=== PATIENT | male | born 2000 | race Native Hawaiian/Other Pacific Islander ===

== ENCOUNTER 2021-08-19 12:49 | Emergency (ER) | payer MEDICAID ==
--- NOTE | 2021-08-19 12:51 | ERPHSYRPT ---
- History of Present Illness Time Seen by Provider: 08/19/21 12:51 Source: patient Exam Limitations: no limitations Physician History: This is a 20-year-old white male who is new to the area and presents with left earache that has been intermittent over the last 2 months. It worsened this morning. He stated he use hydrogen peroxide yesterday and now he is having trouble with increased pain and decreased hearing in his left ear. He has not had a fever. He has had no nausea vomiting or diarrhea. He has no known drug allergies and is not taking any medications chronically. Timing/Duration: intermittent, weeks (8) Severity: mild ENT Location: ear (L) Prearrival Treatment: no prearrival treatment (Hydroperoxide) Modifying Factors: Improves With: nothing Associated Symptoms: ear pain (L), hearing loss (Decreased left side) Allergies/Adverse Reactions: No Known Drug Allergies Allergy (Unverified 08/19/21 12:59) Travel Risk - International Travel Have you traveled outside of the country in past 3 weeks: No - Coronavirus Screening Are you exhibiting any of the following symptoms?: No Close contact with a COVID-19 positive Pt in past 14-21 Days: No - Review of Systems Constitutional: No Symptoms Eyes: No Symptoms Ears, Nose, & Throat: Ear Pain (Left) Respiratory: No Symptoms Cardiac: No Symptoms Abdominal/Gastrointestinal: No Symptoms Genitourinary Symptoms: No Symptoms Musculoskeletal: No Symptoms Skin: No Symptoms Neurological: No Symptoms Psychological: No Symptoms Endocrine: No Symptoms Hematologic/Lymphatic: No Symptoms Immunological/Allergic: No Symptoms All Other Systems: Reviewed and Negative - Past Medical History Pertinent Past Medical History: No - Past Surgical History Past Surgical History: No - Nursing Vital Signs Nursing Vital Signs: Initial Vital Signs Temperature 96.8 F 08/19/21 12:52 Pulse Rate 98 H 08/19/21 12:52 Respiratory Rate 18 08/19/21 12:52 Blood Pressure 138/79 08/19/21 12:52 O2 Sat by Pulse Oximetry 97 08/19/21 12:52 Pain Scale Pain Intensity 3 - Physical Exam General Appearance: no apparent distress, alert, anxiety Eye Exam: bilateral eye: normal inspection, PERRL, EOMI Ear Exam: right ear: canal normal, TM normal, left ear: erythema, tenderness, TM dull, bilateral ear: auricle normal Nasal Exam: normal inspection Throat Exam: normal, pharynx normal Neck Exam: normal inspection, non-tender, supple, full range of motion, trachea midline Cardiovascular/Respiratory Exam: chest non-tender, no respiratory distress Abdominal Exam: non-tender Neurologic Exam: alert, oriented x 3, cooperative, financial sales assistant II-XII nml as tested, normal mood/affect, nml cerebellar function, nml station & gait, sensation nml Skin Exam: normal color, warm, dry SpO2 Interpretation: normal O2 Delivery: Room Air - Course Nursing assessment & vital signs reviewed: Yes - Progress Progress: unchanged Counseled pt/family regarding: diagnosis, need for follow-up - Departure Departure Disposition: Home Clinical Impression: Left otitis media Condition: Stable Critical Care Time: No Referrals: ELIGIO MOLINA NP [Primary Care Provider] - Follow up/PCP as directed Additional Instructions: Take your medication as prescribed. Call pearl maker today (names provided) to make a follow-up appointment. May add Tylenol and ibuprofen if no contraindications for pain control. Prescriptions: Prednisone 10 mg [Deltasone 10 mg] 10 mg PO TID #12 tablet Cephalexin Mh 500 mg [Keflex 500 mg] 500 mg PO TID #21 cap
== END 2021-08-19 13:21 | disposition home or self-care (01) ==
LOC: ED 12:49
DX: H66.92 Otitis media, unspecified, left ear (principal)
CPT/HCPCS: 99283

== ENCOUNTER 2023-12-17 15:04 | Emergency (ER) | payer MEDICAID, OTHER ==
[2023-12-17 15:17] VITALS: TEMP 98.2
[2023-12-17] MEDS ORDERED: Zofran 4 MG/2 ML VIAL ONE (15:35)
[2023-12-17] MEDS ORDERED: SUBLIMAZE 100 MCG/2 ML ONE (15:36)
[2023-12-17] MEDS: Zofran 4 MG/2 ML VIAL IV ONE (15:37)
[2023-12-17 15:39] LABS: Absolute Neutrophil Ct (ANC) 6.31 x10^3/uL (1.4-6.9); BASOPHIL % 0.4 % (0.0-0.4); Basophil (Absolute #) 0.04 x10^3/uL (0-0.4); Eosinophil % 0.2 % (0.00-5.0); Eosinophil (Absolute #) 0.02 x10^3/uL (0-0.5); Hematocrit 44.8 % (42-50); IMMATURE GRAN # 0.05 x10^3u/L (0.00-0.03); IMMATURE GRAN % 0.5 % (0.00-0.4); Lymphocyte (Absolute #) 2.95 x10^3/uL (1.0-4.6); Lymphocytes % 29.2 % (24.0-44.0); Mean Cell Volume 86.5 fL (78-100); Mean Corpuscular Hgb Concent. 33.5 g/dL (32-36); Mean Platelet Volume 11.2 fL (7.5-11.0); Monocyte (Absolute #) 0.74 x10^3/uL (0.0-1.3); Monocytes % 7.3 % (0.0-12.0); Neutrophil % 62.4 % (36.0-66.0); Platelet Count 264 x10^3/uL (150-450); Red Blood Count 5.18 x10^6/uL (4.1-5.6); Red Cell Distribution Width 12.8 % (11.5-14.0); White Blood Count 10.1 x10^3/uL (4.0-10.5)
[2023-12-17] MEDS: SUBLIMAZE 100 MCG/2 ML IV ONE (15:39)
--- NOTE | 2023-12-17 15:42 | ERPHSYRPT ---
- History of Present Illness Time Seen by Provider: 12/17/23 15:12 Source: patient Exam Limitations: no limitations Patient Subjective Stated Complaint: Pt c/o of right sided chest pain that radiates to his shoulder and down below the breast Triage Nursing Assessment: Pt brought to the ER by his mom, hypertensive, rates pain as 05/20, pt states that his legs went numb at work and he fell and now c/o of kandy numb hands and right sided chest pain that radiates to his shoulder, pulses normal, skin n/w/d, was hyperventilating upon arrival, no difficulty breathing once he slowed it down, doesn't appear to be in any distress Physician History: Patient is here with chest pain. Midsternal. Radiates down his right arm. Patient states that he was at work today and had a fall. Complained of bilateral leg numbness, hand numbness. Pulses are normal, hyperventilating upon walking in the room. Patient does follow-up With his PCP. Per the mom there is no sudden onset of of aortic dissections, other heart problems in the family. 1 uncle may have had a heart attack around 30. However no known early cardiac disease outside of this. No known history of HCMO. Allergies/Adverse Reactions: No Known Drug Allergies Allergy (Verified 12/17/23 15:17) Home Medications: No Reportable Medications [No Reported Medications] 12/17/23 [History] Hx Tetanus, Diphtheria Vaccination/Date Given: No Hx Influenza Vaccination/Date Given: No Hx Pneumococcal Vaccination/Date Given: No Travel Risk - International Travel Have you traveled outside of the country in past 3 weeks: No - Coronavirus Screening Are you exhibiting any of the following symptoms?: No Close contact with a COVID-19 positive Pt in past 14-21 Days: No - Vaccine Status Have you recieved a Covid-19 vaccination: Yes Satellite Installation Technician: Moderna - Vaccination Dates Date of 2cond Vaccination (if applicable): 2020 - Past Medical History Pertinent Past Medical History: No Psycho-Social History: Attention Deficit Disorder, Other Other Medical History: autism - Past Surgical History Past Surgical History: No - Social History Smoking Status: Never smoker Exposure to second hand smoke: No Drug Use: none Patient Lives Alone: No - Nursing Vital Signs Nursing Vital Signs: Initial Vital Signs Temperature 98.2 F 12/17/23 15:07 Pulse Rate 106 H 12/17/23 15:07 Respiratory Rate 27 H 12/17/23 15:07 Blood Pressure 150/109 12/17/23 15:07 O2 Sat by Pulse Oximetry 99 12/17/23 15:07 Pain Scale Pain Intensity 4 - Physical Exam SpO2 Interpretation: normal SpO2: 99 Comments: 12/17/23 15:41 Review of Systems Constitutional: Negative for fever. HENT: Negative for congestion. Respiratory: Negative for shortness of breath. Cardiovascular: Chest Pain Gastrointestinal: Negative for abdominal pain. Genitourinary: Negative for dysuria. Musculoskeletal: Negative for back pain. Skin: Negative for rash. Neurological: Negative for headaches. Psychiatric/Behavioral: Negative for behavioral problems. All other systems reviewed and are negative. Physical Exam Vitals signs and nursing note reviewed. Constitutional: Appearance: Patient is well-developed. HENT: Head: Normocephalic and atraumatic. Eyes: Conjunctiva/sclera: Conjunctivae normal. Neck: Musculoskeletal: Normal range of motion. Trachea: No tracheal deviation. Cardiovascular: Rate and Rhythm: Normal rate. Normal pulses throughout, 2+, no change in blood pressure from side arms Pulmonary: Effort: Pulmonary effort is normal. No respiratory distress. Abdominal: Palpations: Abdomen is soft. Musculoskeletal: General: No deformity. Skin: General: Skin is warm and dry. Neurological/ Psychiatric: Mental Status: Mental status, behavior, interaction with environment is appropriate for patient's age and condition - Course Nursing assessment & vital signs reviewed: Yes EKG Interpreted by Me: Sinus Rhythm (Sinus rhythm, rate of 96, FL interval 187, QRS 89, QTc is 452) Ordered Tests: Active Orders 24 hr Category Date Time Status Inclined Railway Operator STAT Care 12/17/23 15:17 Active EKG-ER Only STAT Care 12/17/23 15:16 Active IV Insertion STAT Care 12/17/23 15:16 Active CHEST 2 VIEWS (PA AND LAT) Stat Exams 12/17/23 15:17 Completed CTA ABDOMEN W AND/OR WO CONTRA [CT] Stat Exams 12/17/23 16:00 Completed CTA CHEST W AND/OR WO [CT] Stat Exams 12/17/23 16:00 Completed CBC W DIFF Stat Lab 12/17/23 15:25 Completed CK-Creatinine Phosphokinase Stat Lab 12/17/23 15:25 Completed CMP Stat Lab 12/17/23 15:25 Completed D-DIMER QUANTITATIVE Stat Lab 12/17/23 15:25 Completed NT PRO BNPII Stat Lab 12/17/23 15:25 Completed TROPONIN Q4H Lab 12/17/23 15:25 Completed TROPONIN Q4H Lab 12/17/23 19:30 Ordered TROPONIN Q4H Lab 12/17/23 23:30 Ordered Medication Summary Discontinued Medications Generic Name Dose Route Start Last Admin Trade Name Amy PRN Reason Stop Dose Admin Fentanyl Citrate 100 mcg 12/17/23 15:16 12/17/23 15:39 Fentanyl Citrate 100 Mcg/2 Ml* Vial IV 12/17/23 15:17 100 mcg STAT ONE Administration Fentanyl Citrate Confirm 12/17/23 15:36 Fentanyl Citrate 100 Mcg/2 Ml* Vial Administered 12/17/23 15:37 Dose 100 mcg .ROUTE .STK-MED ONE Ondansetron HCl 4 mg 12/17/23 15:16 12/17/23 15:37 Ondansetron Hcl 4 Mg/2 Ml Vial IV 12/17/23 15:17 4 mg STAT ONE Administration Ondansetron HCl Confirm 12/17/23 15:35 Ondansetron Hcl 4 Mg/2 Ml Vial Administered 12/17/23 15:36 Dose 4 mg .ROUTE .STK-MED ONE Lab/Rad Data: Laboratory Result Diagrams 12/17/23 15:25 12/17/23 15:25 Laboratory Results 12/17/23 12/17/23 12/17/23 Range/Units 15:25 15:25 15:25 WBC (4.0-10.5) x10^3/uL RBC (4.1-5.6) x10^6/uL Hgb (12.5-18.0) g/dL Hct (42-50) % MCV (78-100) fL MCH (26-32) pg MCHC (32-36) g/dL RDW (11.5-14.0) % Plt Count (150-450) x10^3/uL MPV (7.5-11.0) fL Gran % (36.0-66.0) % Immature Gran % (Auto) (0.00-0.4) % Nucleat RBC Rel Count (0.00-0.1) % Eos # (Auto) (0-0.5) x10^3/uL Immature Gran # (Auto) (0.00-0.03) x10^3u/L Absolute Lymphs (auto) (1.0-4.6) x10^3/uL Absolute Monos (auto) (0.0-1.3) x10^3/uL Absolute Nucleated RBC (0.00-0.01) x10^3u/L Lymphocytes % (24.0-44.0) % Monocytes % (0.0-12.0) % Eosinophils % (0.00-5.0) % Basophils % (0.0-0.4) % Absolute Granulocytes (1.4-6.9) x10^3/uL Basophils # (0-0.4) x10^3/uL D-Dimer 0.23 (0.0-0.50) mg/L Sodium 139 (135-145) mmol/L Potassium 3.9 (3.5-5.1) mmol/L Chloride 100 (98-107) mmol/L Carbon Dioxide 25 (22-30) mmol/L Anion Gap 17.9 H (5-15) MEQ/L BUN 10 (9-20) mg/dL Creatinine 0.68 (0.66-1.25) mg/dL Estimated GFR 132.3 ML/MIN Glucose 93 (74-106) mg/dL Calcium 9.6 (8.4-10.2) mg/dL Total Bilirubin 0.40 (0.2-1.3) mg/dL AST 50 (17-59) U/L ALT 118 H (0-50) U/L Alkaline Phosphatase 60 (38-126) U/L Creatine Kinase 157 (55-170) U/L Troponin I < 0.012 (0.000-0.034) ng/mL NT-Pro-B Natriuret Pep < 20.0 (<300) pg/mL Serum Total Protein 8.2 (6.3-8.2) g/dL Albumin 4.9 (3.5-5.0) g/dL 12/17/23 Range/Units 15:25 WBC 10.1 (4.0-10.5) x10^3/uL RBC 5.18 (4.1-5.6) x10^6/uL Hgb 15.0 (12.5-18.0) g/dL Hct 44.8 (42-50) % MCV 86.5 (78-100) fL MCH 29.0 (26-32) pg MCHC 33.5 (32-36) g/dL RDW 12.8 (11.5-14.0) % Plt Count 264 (150-450) x10^3/uL MPV 11.2 H (7.5-11.0) fL Gran % 62.4 (36.0-66.0) % Immature Gran % (Auto) 0.5 H (0.00-0.4) % Nucleat RBC Rel Count 0.0 (0.00-0.1) % Eos # (Auto) 0.02 (0-0.5) x10^3/uL Immature Gran # (Auto) 0.05 H (0.00-0.03) x10^3u/L Absolute Lymphs (auto) 2.95 (1.0-4.6) x10^3/uL Absolute Monos (auto) 0.74 (0.0-1.3) x10^3/uL Absolute Nucleated RBC 0.00 (0.00-0.01) x10^3u/L Lymphocytes % 29.2 (24.0-44.0) % Monocytes % 7.3 (0.0-12.0) % Eosinophils % 0.2 (0.00-5.0) % Basophils % 0.4 (0.0-0.4) % Absolute Granulocytes 6.31 (1.4-6.9) x10^3/uL Basophils # 0.04 (0-0.4) x10^3/uL D-Dimer (0.0-0.50) mg/L Sodium (135-145) mmol/L Potassium (3.5-5.1) mmol/L Chloride (98-107) mmol/L Carbon Dioxide (22-30) mmol/L Anion Gap (5-15) MEQ/L BUN (9-20) mg/dL Creatinine (0.66-1.25) mg/dL Estimated GFR ML/MIN Glucose (74-106) mg/dL Calcium (8.4-10.2) mg/dL Total Bilirubin (0.2-1.3) mg/dL AST (17-59) U/L ALT (0-50) U/L Alkaline Phosphatase (38-126) U/L Creatine Kinase (55-170) U/L Troponin I (0.000-0.034) ng/mL NT-Pro-B Natriuret Pep (<300) pg/mL Serum Total Protein (6.3-8.2) g/dL Albumin (3.5-5.0) g/dL - Progress Progress: improved Progress Note: 12/17/23 15:42 Differential diagnosis includes: PNA, STEMI, NSTEMI, other infection, musculoskeletal pain, pneumothorax - We'll obtain basic labs, fluids, EKG, troponin, chest x-ray - EKG shows no ST changes - my read - O2 saturations consistently greater than 95%. - CXR shows no pneumonia, pneumothorax - my read 12/17/23 17:26 EKG and troponin are both normal. No signs of acute coronary syndrome. I did obtain a CTA of the chest abdomen pelvis looking for any aortic dissection, other acute chest or abdominal aortic and intra-abdominal issues. Patient had a negative CT scan at this point in time. No obvious aortic dissection or other abnormalities. Patient feels improved with medication here. No obvious cause for patient's symptoms tonight. He will need to follow-up closely with his PCP. He may return here sooner for any new or changing symptoms. Counseled pt/family regarding: lab results, diagnosis, need for follow-up, rad results - Departure Departure Disposition: Home Clinical Impression: Atypical chest pain Condition: Stable Critical Care Time: No Referrals: DOCTOR,NO FAMILY [NON-STAFF PHY W/O PRIVILEGES] - Follow up/PCP as directed Instructions: Chest Pain (DC)
[2023-12-17 15:55] LABS: ALBUMIN 4.9 g/dL (3.5-5.0); ALKALINE PHOSPHATASE 60 U/L (38-126); ANION GAP 17.9 MEQ/L (5-15); BLOOD UREA NITROGEN 10 mg/dL (9-20); CHLORIDE 100 mmol/L (98-107); CK-Creatinine Phosphokinase 157 U/L (55-170); Calcium 9.6 mg/dL (8.4-10.2); Carbon Dioxide 25 mmol/L (22-30); Creatinine 1 0.68 mg/dL (0.66-1.25); EST GLOMERULAR FILTRATION RATE 132.3 ML/MIN; Glucose 93 mg/dL (74-106); NT PRO BNPII < 20.0 pg/mL (<300); Potassium 3.9 mmol/L (3.5-5.1); SGOT/AST 50 U/L (17-59); SGPT/ALT 118 U/L (0-50); SODIUM 139 mmol/L (135-145); Total Protein 8.2 g/dL (6.3-8.2)
--- NOTE | 2023-12-17 16:31 | XRAY ---
Indication: Chest pain. Comparison: None PA/lateral chest slightly degraded by respiration artifact. No obvious focal infiltrate, consolidation, or large effusion. Heart not enlarged. Bony thorax intact with mild dextroscoliosis. Impression: Grossly nonacute limited chest.
--- NOTE | 2023-12-17 16:47 | XRAY ---
Indication: Aortic dissection. Negative same day chest radiograph. Conventional contrast enhanced CTA chest performed using 100 cc Isovue 370 contrast. 2-D sagittal and coronal reformatted images obtained. Additional 3-D reformatted images obtained using a separate workstation. Comparison: None Normal CTA appearance to the thoracic aorta. Heart not enlarged. Minimal residual thymus tissue. No pathologic mediastinal/hilar lymphadenopathy. Lungs inflated and clear. Bony thorax intact. CTA abdomen/pelvis reported separately. Impression: Completely normal CTA chest with contrast exam.
--- NOTE | 2023-12-17 16:49 | XRAY ---
Indication: Aortic dissection. Conventional contrast enhanced CTA abdomen/pelvis performed using 100 cc Isovue 370 contrast. 2-D sagittal and coronal reformatted images obtained. Additional 3-D reformatted images obtained using a separate workstation. Comparison: None CTA chest reported separately. Normal CTA appearance to the abdominal aorta, celiac, superior/inferior mesenteric, main renal, and bilateral iliac arteries. Noncontrasted stomach and bowel loops appear nonobstructed with normal appendix. Minimal scattered colonic diverticulosis without diverticulitis. Diffuse fatty liver. No pathologic retroperitoneal lymphadenopathy or free fluid/air. Remaining liver, gallbladder, pancreas, spleen, adrenal glands, kidneys, ureters, and bladder are unremarkable. Osseous structures intact. Impression: 1. Fatty liver and colonic diverticulosis. 2. Remaining CTA abdomen/pelvis with contrast exam is normal.
[2023-12-17 17:15] VITALS: BP 93/46; PULSE 86; RESP 18
[2023-12-17 17:17] VITALS: O2SAT 99
== END 2023-12-17 17:28 | disposition home or self-care (01) ==
LOC: ED 15:04
DX: R07.9 Chest pain, unspecified (principal); W19.XXXA Unspecified fall, initial encounter; R20.0 Anesthesia of skin; Z20.828 Contact with and (suspected) exposure to other viral communicable diseases
CPT/HCPCS: 36000; 36415; 71046; 71275; 74175; 80053; 82550; 83880; 84484; 85025; 85379; 93005; 93041; 96374; 96375; 99284; J2405; J3010